=== PATIENT | female | born 1970 | race African-American/Black ===

== ENCOUNTER 2020-08-31 17:38 | Emergency (ER) | payer BC ==
--- NOTE | 2020-08-31 18:39 | EDM.PDOC ---
ED HPI GENERAL MEDICAL PROBLEM - General Chief Complaint: Upper Extremity Injury/Pain Stated Complaint: FLUID IN ELBOW Time Seen by Provider: 08/31/20 18:24 Source of Information: Reports: Patient History Limitations: Reports: No Limitations - History of Present Illness INITIAL COMMENTS - FREE TEXT/NARRATIVE: HISTORY AND PHYSICAL: History of present illness: Patient is a 50-year-old female who presents to the ED today with concern of bursitis of her right elbow. Patient states that she has had this bursitis for quite some time and has seen the orthopedic providers for it. Patient states that she had an x-ray done by the orthopedic provider as well as had a sample obtained of the fluid of the bursitis and was told that it was not infectious. Patient states she comes to the emergency room today because it still hurts and she continues to keep bumping the area of bursitis on things and feels like it is not improving. Patient denies any change in the bursitis from her evaluation from orthopedics but states that it is bothersome to her. Patient denies any new trauma or injury of the elbow. Patient denies fever, chills, chest pain, shortness of breath, or cough. Denies headache, neck stiff ness, change in vision, syncope, or near syncope. Denies nausea, vomiting, abdominal pain, diarrhea, constipation, or dysuria. Has not noted any blood in urine or stool. Patient has been eating and drinking appropriately. Review of systems: As per history of present illness and below otherwise all systems reviewed and negative. Past medical history: As per history of present illness and as reviewed below otherwise noncontributory. Surgical history: As per history of present illness and as reviewed below otherwise noncontributory. Social history: See social history for further information Family history: As per history of present illness and as reviewed below otherwise noncontributory. Physical exam: General: Patient is alert, oriented, and in no acute distress. Patient sitting comfortably on exam table. HEENT: Atraumatic, normocephalic, pupils equal and reactive bilaterally, negative for conjunctival pallor or scleral icterus, mucous membranes moist, TMs normal bilaterally, throat clear, neck supple, nontender, trachea midline. No drooling or trismus noted. No meningeal signs. No hot potato voice noted. Lungs: Clear to auscultation, breath sounds equal bilaterally, chest nontender. Heart: S1S2, regular rate and rhythm without overt murmur Abdomen: Soft, nondistended, nontender. Negative for masses or hepatosplenomegaly. Negative for costovertebral tenderness. Pelvis: Stable nontender. Genitourinary: Deferred. Rectal: Deferred. Skin: Intact, warm, dry. No lesions or rashes noted. Extremities: Patient has bursitis noted over the right olecranon without erythema, ecchymosis or increase in warmth. Patient has full range of motion of the complete right upper extremity without pain or difficulty. Radial pulses grossly intact with capillary refill less than 2 seconds. Otherwise, atraumatic, negative for cords or calf pain. Neurovascular unremarkable. Neuro: Awake, alert, oriented. Cranial nerves II through XII unremarkable. Cereb ellum unremarkable. Motor and sensory unremarkable throughout. Exam nonfocal. Notes: Signs and symptoms that were prompt return to the ED thoroughly discussed with patient. Discussed importance for follow-up with primary care provider or orthopedic provider. Voices understanding and is agreeable to plan of care. Denies any further questions or concerns at this time. Diagnostics: None Therapeutics: I did offer [place] wrap as possible padding but patient declines. Prescription: None Impression: Olecranon bursitis, right Plan: 1. Take medication as prescribed. Do not take any additional NSAIDs with diclofenac such as ibuprofen, naproxen, Aleve, and aspirin. You can take Tylenol as directed for pain and discomfort along with diclofenac as well. 2. Follow-up with the orthopedic provider and your primary care provider as discussed. Return to the ED as needed and as discussed. Definitive disposition and diagnosis as appropriate pending reevaluation and review of above. Right Elbow Pain Score (Numeric/FACES): 4 Past Medical History - Past Health History Medical/Surgical History: Denies Medical/Surgical History Social & Family History - Tobacco Use Tobacco Use Status *Q: Never Tobacco User - Caffeine Use Caffeine Use: Reports: None - Recreational Drug Use Recreational Drug Use: No Review of Systems - Review of Systems Review Of Systems: Comprehensive ROS is negative, except as noted in HPI. ED EXAM, GENERAL - Physical Exam Exam: See Below (See dictation) Course - Vital Signs Last Recorded V/S: Last Vital Signs Temp 97.7 F 08/31/20 18:20 Pulse 77 08/31/20 18:20 Resp 18 08/31/20 18:20 BP 114/76 08/31/20 18:20 Pulse Ox 98 08/31/20 18:20 Departure - Departure Time of Disposition: 18:37 Disposition: Home, Self-Care 01 Clinical Impression: Bursitis of right elbow Qualifiers: Elbow bursitis location: olecranon bursitis Qualified Code(s): M70.21 - Olecranon bursitis, right elbow - Discharge Information Instructions: Bursitis Referrals: PCP,None [Primary Care Provider] - Forms: ED Department Discharge Additional Instructions: The following information is given to patients seen in the emergency department who are being discharged to home. This information is to outline your options for follow-up care. We provide all patients seen in our emergency department with a follow-up referral. The need for follow-up, as well as the timing and circumstances, are variable depending upon the specifics of your emergency department visit. If you don't have a primary care physician on staff, we will provide you with a referral. We always advise you to contact your personal physician following an emergency department visit to inform them of the circumstance of the visit and for follow-up with them and/or the need for any referrals to a consulting specialist. The emergency department will also refer you to a specialist when appropriate. This referral assures that you have the opportunity for follow-up care with a specialist. All of these measure are taken in an effort to provide you with optimal care, which includes your follow-up. Under all circumstances we always encourage you to contact your private physician who remains a resource for coordinating your care. When calling for follow-up care, please make the office aware that this follow-up is from your recent emergency room visit. If for any reason you are refused follow-up, please contact the [facility] Emergency Department at and asked to speak to the emergency department charge nurse. [facility] [address] [place] [id number] [address] [facility] [address] [place] [address], [address] [place] [address] 1. Take medication as prescribed. Do not take any additional NSAIDs with diclofenac such as ibuprofen, naproxen, Aleve, and aspirin. You can take Tylenol as directed for pain and discomfort along with diclofenac as well. 2. Follow-up with the orthopedic provider and your primary care provider as discussed. Return to the ED as needed and as discussed. Sepsis Event Note (ED) - Evaluation Sepsis Screening Result: No Definite Risk - Focused Exam Vital Signs: Vital Signs Temp Pulse Resp BP Pulse Ox 08/31/20 18:20 97.7 F 77 18 114/76 98
== END 2020-08-31 18:49 | disposition home or self-care (01) ==
LOC: MW.ED 17:38
DX: M70.21 Olecranon bursitis, right elbow (principal)
CPT/HCPCS: 99283

== ENCOUNTER 2021-02-04 10:27 | Emergency (ER) | payer BC ==
--- NOTE | 2021-02-04 10:30 | EDM.PDOC ---
ED HPI GENERAL MEDICAL PROBLEM - General Chief Complaint: Back Pain or Injury Stated Complaint: R SIDE PAIN NEAR SYATIC NERVE Time Seen by Provider: 02/04/21 10:28 Source of Information: Reports: Patient History Limitations: Reports: No Limitations - History of Present Illness INITIAL COMMENTS - FREE TEXT/NARRATIVE: 50-year-old female presents with right-sided flank pain. Patient notes that she works at [employer] and does occasionally do lifting, but denies any heavy lifting or changes in routine. Yesterday evening began to experience a right-sided flank pain without radiation. It is a little worse with bending over palpation. This morning she also had an episode of nausea without vomiting. She denies any dysuria but notes that it is difficult to assess for hematuria as she is currently on her menstrual cycle. She does note a history of kidney stones and states that this feels similar and she is concerned she might have a kidney stone. Denies fevers, chest pain, shortness of breath. right lower back Pain Score (Numeric/FACES): 7 - Related Data Allergies Allergy/AdvReac Type Severity Reaction Status Date / Time No Known Allergies Allergy Verified 02/04/21 10:45 Home Meds: Home Meds Acetaminophen/oxyCODONE [Percocet 325-5 MG] 1 each PO Q6H PRN #12 tab 02/04/21 [Rx] Ibuprofen [Motrin] 600 mg PO Q6H PRN #20 tab 02/04/21 [Rx] Tamsulosin HCl [Flomax] 0.4 mg PO DAILY #7 capsule 02/04/21 [Rx] Past Medical History - Past Health History Medical/Surgical History: Denies Medical/Surgical History Social & Family History - Caffeine Use Caffeine Use: Reports: None ED ROS GENERAL - Review of Systems Review Of Systems: Comprehensive ROS is negative, except as noted in HPI. ED EXAM, GENERAL - Physical Exam Exam: See Below Exam Limited By: No Limitations General Appearance: Alert, WD/WN, No Apparent Distress Ears: Hearing Grossly Normal Throat/Mouth: Normal Voice, No Airway Compromise Head: Atraumatic, Normocephalic Respiratory/Chest: No Respiratory Distress, Lungs Clear, Normal Breath Sounds, No Accessory Muscle Use Cardiovascular: Normal Peripheral Pulses, Regular Rate, Rhythm Back Exam: Normal Inspection Extremities: Normal Inspection Neurological: Alert, Normal Cognition, Normal Gait Psychiatric: Normal Affect, Normal Mood Skin Exam: Warm, Dry, Intact, Normal Color Course - Vital Signs Last Recorded V/S: Last Vital Signs Temp 96.5 F L 02/04/21 10:43 Pulse 80 02/04/21 10:43 Resp 18 02/04/21 10:43 BP 115/75 02/04/21 10:43 Pulse Ox 98 02/04/21 10:43 - Orders/Labs/Meds Orders: Active Orders 24 hr Category Date Time Status UA W/MICROSCOPIC [URIN] Stat Lab 02/04/21 11:46 Results Saline Lock Insert [OM.PC] Stat Oth 02/04/21 10:52 Ordered Labs: Laboratory Tests 02/04/21 02/04/21 02/04/21 Range/Units 10:55 10:55 11:46 WBC 3.29 L (4.0-11.0) K/uL RBC 5.02 (4.30-5.90) M/uL Hgb 11.7 L (12.0-16.0) g/dL Hct 37.8 (36.0-46.0) % MCV 75.3 L (80.0-98.0) fL MCH 23.3 L (27.0-32.0) pg MCHC 31.0 (31.0-37.0) g/dL RDW Std Deviation 38.0 (28.0-62.0) fl RDW Coeff of Jean 14 (11.0-15.0) % Plt Count 308 (150-400) K/uL MPV 10.50 (7.40-12.00) fL Neut % (Auto) 61.7 (48.0-80.0) % Lymph % (Auto) 28.6 (16.0-40.0) % [place] % (Auto) 8.8 (0.0-15.0) % Eos % (Auto) 0.6 (0.0-7.0) % Baso % (Auto) 0.3 (0.0-1.5) % Neut # (Auto) 2.0 (1.4-5.7) K/uL Lymph # (Auto) 0.9 (0.6-2.4) K/uL [place] # (Auto) 0.3 (0.0-0.8) K/uL Eos # (Auto) 0.0 (0.0-0.7) K/uL Baso # (Auto) 0.0 (0.0-0.1) K/uL Nucleated RBC % 0.0 /100WBC Nucleated RBCs # 0 K/uL Sodium 140 (136-145) mmol/L Potassium 3.8 (3.5-5.1) mmol/L Chloride 104 (98-107) mmol/L Carbon Dioxide 26.0 (21.0-32.0) mmol/L BUN 17 (7.0-18.0) mg/dL Creatinine 0.6 (0.6-1.0) mg/dL Est Cr Clr Drug Dosing 95.79 mL/min Estimated GFR (MDRD) > 60.0 ml/min Glucose 103 (74-106) mg/dL Calcium 8.2 L (8.5-10.1) mg/dL Total Bilirubin 0.5 (0.2-1.0) mg/dL AST 22 (15-37) IU/L ALT 28 (14-63) IU/L Alkaline Phosphatase 38 L (46-116) U/L Total Protein 7.4 (6.4-8.2) g/dL Albumin 3.6 (3.4-5.0) g/dL Globulin 3.8 (2.6-4.0) g/dL Albumin/Globulin Ratio 0.9 (0.9-1.6) Urine Color YELLOW Urine Appearance CLEAR Urine pH 7.5 (5.0-8.0) Ur Specific [place] 1.020 (1.001-1.035) Urine Protein NEGATIVE (NEGATIVE) mg/dL Urine Glucose (UA) NEGATIVE (NEGATIVE) mg/dL Urine Ketones NEGATIVE (NEGATIVE) mg/dL Urine Occult Blood LARGE H (NEGATIVE) Urine Nitrite NEGATIVE (NEGATIVE) Urine Bilirubin NEGATIVE (NEGATIVE) Urine Urobilinogen 0.2 (<2.0) EU/dL Ur Leukocyte Esterase NEGATIVE (NEGATIVE) Urine HCG, Qual (NEGATIVE) 02/04/21 Range/Units 11:46 WBC (4.0-11.0) K/uL RBC (4.30-5.90) M/uL Hgb (12.0-16.0) g/dL Hct (36.0-46.0) % MCV (80.0-98.0) fL MCH (27.0-32.0) pg MCHC (31.0-37.0) g/dL RDW Std Deviation (28.0-62.0) fl RDW Coeff of Jean (11.0-15.0) % Plt Count (150-400) K/uL MPV (7.40-12.00) fL Neut % (Auto) (48.0-80.0) % Lymph % (Auto) (16.0-40.0) % [place] % (Auto) (0.0-15.0) % Eos % (Auto) (0.0-7.0) % Baso % (Auto) (0.0-1.5) % Neut # (Auto) (1.4-5.7) K/uL Lymph # (Auto) (0.6-2.4) K/uL [place] # (Auto) (0.0-0.8) K/uL Eos # (Auto) (0.0-0.7) K/uL Baso # (Auto) (0.0-0.1) K/uL Nucleated RBC % /100WBC Nucleated RBCs # K/uL Sodium (136-145) mmol/L Potassium (3.5-5.1) mmol/L Chloride (98-107) mmol/L Carbon Dioxide (21.0-32.0) mmol/L BUN (7.0-18.0) mg/dL Creatinine (0.6-1.0) mg/dL Est Cr Clr Drug Dosing mL/min Estimated GFR (MDRD) ml/min Glucose (74-106) mg/dL Calcium (8.5-10.1) mg/dL Total Bilirubin (0.2-1.0) mg/dL AST (15-37) IU/L ALT (14-63) IU/L Alkaline Phosphatase (46-116) U/L Total Protein (6.4-8.2) g/dL Albumin (3.4-5.0) g/dL Globulin (2.6-4.0) g/dL Albumin/Globulin Ratio (0.9-1.6) Urine Color Urine Appearance Urine pH (5.0-8.0) Ur Specific [place] (1.001-1.035) Urine Protein (NEGATIVE) mg/dL Urine Glucose (UA) (NEGATIVE) mg/dL Urine Ketones (NEGATIVE) mg/dL Urine Occult Blood (NEGATIVE) Urine Nitrite (NEGATIVE) Urine Bilirubin (NEGATIVE) Urine Urobilinogen (<2.0) EU/dL Ur Leukocyte Esterase (NEGATIVE) Urine HCG, Qual NEGATIVE (NEGATIVE) Meds: Medications Discontinued Medications Generic Name Dose Route Start Last Admin Trade Name Freq PRN Reason Stop Dose Admin Sodium Chloride 1,000 mls @ 999 mls/hr 02/04/21 10:52 02/04/21 11:04 Normal Saline IV 02/04/21 11:52 999 mls/hr .Bolus ONE Administration Ketorolac Tromethamine 15 mg 02/04/21 11:01 02/04/21 11:06 Ketorolac 30 Mg/Ml Sdv IVPUSH 02/04/21 11:02 Not Given ONETIME ONE Ondansetron HCl 4 mg 02/04/21 10:52 02/04/21 11:06 Ondansetron 4 Mg/2 Ml Sdv IVPUSH 02/04/21 10:53 4 mg ONETIME ONE Administration - Re-Assessments/Exams Free Text/Narrative Re-Assessment/Exam: 02/04/21 10:54 Patient symptoms are concerning for renal stone versus musculoskeletal back pain. Will check urinalysis for hematuria or signs of UTI. Will get basic labs. Patient notes that she is on her menstrual cycle and that she may have blood in her urine, requests going ahead with CT scan before urinalysis is resulted. I believe this is reasonable. We will treat symptomatically with Toradol and Zofran, IV fluid bolus. 02/04/21 12:27 Urinalysis does not show evidence of UTI. CT imaging shows a 2 mm renal stone without hydronephrosis. Will discharge patient with urology follow-up. Departure - Departure Time of Disposition: 12:31 Disposition: Admitted As Inpatient 65 Condition: Good Clinical Impression: Kidney stone on right side - Discharge Information Prescriptions: Tamsulosin HCl [Flomax] 0.4 mg PO DAILY #7 capsule Ibuprofen [Motrin] 600 mg PO Q6H PRN #20 tab PRN Reason: Pain Acetaminophen/oxyCODONE [Percocet 325-5 MG] 1 each PO Q6H PRN #12 tab PRN Reason: Pain Instructions: Kidney Stones Referrals: Pankaj Lopez MD [Primary Care Provider] - Forms: ED Department Discharge Additional Instructions: Your CT shows a 2 mm kidney stone. Fortunately this is very likely to pass on its own without any intervention. Occasionally the stones do get stuck and require consultation with a urologist. If you are having continued pain please make a follow-up appointment with your urologist. Your medication was sent to [facility] which is located in the [employer] store. The following information is given to patients seen in the emergency department who are being discharged to home. This information is to outline your options for follow-up care. We provide all patients seen in our emergency department with a follow-up referral. The need for follow-up, as well as the timing and circumstances, are variable depending upon the specifics of your emergency department visit. If you don't have a primary care physician on staff, we will provide you with a referral. We always advise you to contact your personal physician following an emergency department visit to inform them of the circumstance of the visit and for follow-up with them and/or the need for any referrals to a consulting specialist. The emergency department will also refer you to a specialist when appropriate. This referral assures that you have the opportunity for follow-up care with a specialist. All of these measure are taken in an effort to provide you with optimal care, which includes your follow-up. Under all circumstances we always encourage you to contact your private physician who remains a resource for coordinating your care. When calling for follow-up care, please make the office aware that this follow-up is from your recent emergency room visit. If for any reason you are refused follow-up, please contact the [facility] Emergency Department at and asked to speak to the emergency department charge nurse. Please follow up with your primary care physician. If you do not have a primary care physician, see below: [facility] [address] [place] [id number] [facility] [address] [place] [address] [facility] [address] [place] [address] Sepsis Event Note (ED) - Focused Exam Vital Signs: Vital Signs Temp Pulse Resp BP Pulse Ox 02/04/21 10:43 96.5 F L 80 18 115/75 98 - My Orders Last 24 Hours: My Active Orders 02/04/21 10:52 Saline Lock Insert [OM.PC] Stat 02/04/21 11:46 UA W/MICROSCOPIC [URIN] Stat - Assessment/Plan Last 24 Hours: My Active Orders 02/04/21 10:52 Saline Lock Insert [OM.PC] Stat 02/04/21 11:46 UA W/MICROSCOPIC [URIN] Stat
[2021-02-04] MEDS ORDERED: Ondansetron 4 MG/2 ML SDV IVPUSH ONE (10:52)
[2021-02-04] MEDS ORDERED: Ketorolac 15 MG/ML SDV IVPUSH STA (10:52)
[2021-02-04] MEDS ORDERED: Sodium Chloride 0.9% 1,000 ML IV ONE (10:52)
[2021-02-04] MEDS ORDERED: Ketorolac 30 MG/ML SDV IVPUSH ONE (11:01)
[2021-02-04 11:36] LABS: BLOOD UREA NITROGEN,BUN 17 mg/dL (7.0-18.0); CHLORIDE,CL 104 mmol/L (98-107); GLUCOSE RANDOM 103 mg/dL (74-106); POTASSIUM,K 3.8 mmol/L (3.5-5.1); SODIUM,NA 140 mmol/L (136-145)
--- NOTE | 2021-02-04 12:25 | CT ---
INDICATION: Right flank pain, history of renal stones. TECHNIQUE: CT abdomen and pelvis without contrast. COMPARISON: None available. FINDINGS: Lower chest: No focal consolidation. Evaluation of solid organs is limited secondary to lack of IV contrast administration. Liver: No suspicious focal hepatic lesion. Gallbladder and bile ducts: Gallbladder is decompressed, suboptimally evaluated. Pancreas: Unremarkable. Spleen: Unremarkable. Adrenal glands: Unremarkable. Kidneys: Nonobstructing 0.2 cm calculus in the lower pole of the right kidney. No hydronephrosis or hydroureter. No calculi identified within the left renal collecting system. Retroperitoneum: No lymphadenopathy. Bowel and mesentery: Bowel is nonobstructed. Normal appendix. No significant ascites, no pneumoperitoneum. Bladder: Unremarkable for degree of distension. Reproductive organs: Heterogeneous lobulated contour of the uterus, likely reflective of uterine fibroids. Pelvic lymph nodes: No lymphadenopathy. Vessels: Unremarkable for unenhanced study. Abdominal wall: No acute abdominal wall abnormality. Small fat filled umbilical hernia. Bones: Multilevel degenerative changes of the spine. No suspicious/aggressive focal osseous lesion. IMPRESSION: 1. Nonobstructing 0.2 cm calculus in the lower pole of the right kidney. No hydronephrosis or hydroureter. 2. Heterogeneous lobulated contour of the uterus, likely reflective of uterine fibroids. This could be further evaluated with pelvic ultrasound on a nonemergent basis. Please note that all CT scans at this facility use dose modulation, iterative reconstruction, and/or weight-based dosing when appropriate to reduce radiation dose to as low as reasonably achievable. Dictated by Allyson Murray MD @ 02/04/2021 12:23:36 PM (Electronically Signed)
== END 2021-02-04 12:39 | disposition home or self-care (01) ==
LOC: MW.ED 10:27
DX: N20.0 Calculus of kidney (principal); Z79.899 Other long term (current) drug therapy
CPT/HCPCS: 36415; 74176; 80053; 81001; 81025; 85025; 96374; 96375; 99284; J1885; J2405; J7030

== ENCOUNTER 2021-02-07 10:00 | Emergency (ER) | payer BC ==
--- NOTE | 2021-02-07 11:14 | CT ---
HISTORY: Right flank pain. Known kidney stone. Comparison: 02/04/2021. Technique: CT of the abdomen and pelvis. No intravenous contrast. Coronal/sagittal reconstruction images. Findings: Lung bases: No pleural or pericardial effusion. Heart size is normal. The lung bases demonstrate no acute airspace disease. No basilar pneumothorax. Abdomen/pelvis: No solid hepatic mass. No perihepatic ascites. No radiopaque gallstone. Spleen size is normal. No adrenal mass. No hydronephrosis. No perinephric edema. 2 millimeter stone in the right kidney, image 84, series 201. No obstructive urolith. Stable phlebolith on image 142 of series 201. Enlargement of the uterine corpus, stable. This could represent fibroid disease. Pelvic ultrasound is suggested when clinically appropriate. No mural edema. No evidence for a bowel obstruction. No evidence for appendicitis. Nonenlarged inguinal lymph nodes. No inguinal, pelvic sidewall, retroperitoneal, or gastrohepatic ligament adenopathy. Bone windows demonstrate sclerosis at the iliac sides of both SI joints without fusion. No suspicious bone lesions. On sagittal reconstruction images, vertebral body heights are maintained. Impression: 1. There is a right renal nephrolith, which is stable when compared with 02/04/2021. 2. There is no hydronephrosis, hydroureter, or perinephric inflammatory changes. 3. No abdominal or pelvic lymphadenopathy. Please note that all CT scans at this facility use dose modulation, iterative reconstruction, and/or weight-based dosing when appropriate to reduce radiation dose to as low as reasonably achievable. Dictated by Tod Pichardo MD @ 02/07/2021 11:12:54 AM (Electronically Signed)
[2021-02-07 11:28] LABS: BLOOD UREA NITROGEN,BUN 9 mg/dL (7.0-18.0); CARBON DIOXIDE,CO2 29.5 mmol/L (21.0-32.0); CHLORIDE,CL 102 mmol/L (98-107); GLUCOSE RANDOM 114 mg/dL (74-106); LIPASE 81 U/L (73-393); SODIUM,NA 139 mmol/L (136-145)
--- NOTE | 2021-02-07 11:35 | EDM.PDOC ---
ED HPI GENERAL MEDICAL PROBLEM - General Chief Complaint: Genitourinary Problem Stated Complaint: KIDNEY PAIN Time Seen by Provider: 02/07/21 10:15 Source of Information: Reports: Patient History Limitations: Reports: No Limitations - History of Present Illness INITIAL COMMENTS - FREE TEXT/NARRATIVE: HISTORY AND PHYSICAL: History of present illness: Patient is a 50-year-old female who presents emergency room today with concern of worsening right flank pain with known kidney stone. Patient states that she was seen in the emergency room a few days ago and at that time was told she had a kidney stone. Patient states despite doing what she was instructed to do at home, she has had worsening right flank pain so came back here to the emergency room. Patient states she also feels like the right side of her abdomen is more swollen and tender to the touch than it was when she was seen in the emergency room a few days ago. Patient states that she took all of her medications as prescribed to her but states that she was not sent home with a strainer so is unsure if she passed the stone. Patient denies any trauma or injury or any new associated symptoms. Patient denies fever, chills, chest pain, shortness of breath, or cough. Denies headache, neck stiff ness, change in vision, syncope, or near syncope. Denies nausea, vomiting, diarrhea, constipation, or dysuria. Has not noted any blood in urine or stool. Patient has been eating and drinking appropriately. Review of systems: As per history of present illness and below otherwise all systems reviewed and negative. Past medical history: As per history of present illness and as reviewed below otherwise noncontributory. Surgical history: As per history of present illness and as reviewed below otherwise nonc ontributory. Social history: See social history for further information Family history: As per history of present illness and as reviewed below otherwise noncontributory. Physical exam: General: Patient is alert, oriented, and in no acute distress. Patient sitting comfortably on exam table. Vitals stable and reviewed by me. HEENT: Atraumatic, normocephalic, pupils equal and reactive bilaterally, negative for conjunctival pallor or scleral icterus, mucous membranes moist, throat clear, neck supple, nontender, trachea midline. No drooling or trismus noted. No meningeal signs. No hot potato voice noted. Lungs: Clear to auscultation, breath sounds equal bilaterally, chest nontender. Heart: S1S2, regular rate and rhythm without overt murmur Abdomen: Soft, nondistended, mild right sided flank tenderness without guarding. Negative for masses or hepatosplenomegaly. Negative for costovertebral tenderness. Pelvis: Stable nontender. Genitourinary: Deferred. Rectal: Deferred. Skin: Intact, warm, dry. No lesions or rashes noted. Extremities: Atraumatic, negative for cords or calf pain. Neurovascular unremarkable. Neuro: Awake, alert, oriented. Cranial nerves II through XII unremarkable. C erebellum unremarkable. Motor and sensory unremarkable throughout. Exam nonfocal. Medical Decision Making: Patient is a 50-year-old female presents emergency room today with concern of worsening right flank pain with known ureterolithiasis. Patient was seen and evaluated on 02/04/2021 and on chart review it does appear that she had a small 2 mm ureterolithiasis at that time without hydronephrosis. Upon arrival to the ED, patient is vitally stable and well-appearing on exam. She does have some mild right flank tenderness to palpation, exam is otherwise unremarkable. Will repeat lab work, repeat urinalysis assessing for possible infection, and repeat imaging to assess possible complication of known stone. CBC mild derangements are unremarkable. CMP mild derangements are unremarkable specifically, BUN and creatinine are within normal limits. Urinalysis is completely clear with no blood or signs of infection. hCG is negative. Abdominal pelvic CT scan today shows that there is a right renal nephrolith which is stable when compared to 02/04/2021. There is no hydronephrosis, hydroureter, or perinephritic inflammatory changes. No abdominal or pelvic lymphadenopathy. Does appear that the stone that patient did have on 02/04/2021 has passed with no residual complications. Lab work and urinalysis today are unremarkable with no evidence of why patient continues to have right flank pain. On reevaluation of patient, she remains vitally stable and comfortable throughout stay in ED. All signs and symptoms that would prompt return to the ED thoroughly discussed with patient. Discussed importance for follow-up with a primary care provider. Voices understanding and is agreeable to plan of care. Denies any further questions or concerns at this time. Diagnostics: CBC, CMP, urinalysis, lipase, urine hCG, abdominal pelvic CT scan without contrast Therapeutics: None Prescription: None Impression: Right flank pain S/P recent ureterolithiasis Plan: 1. You can alternate ibuprofen and Tylenol as directed for pain and discomfort. 2. Follow-up with primary care provider as discussed. Return to the ED as needed and as discussed. Definitive disposition and diagnosis as appropriate pending reevaluation and review of above. Right Back Pain Score (Numeric/FACES): 7 - Related Data Allergies Allergy/AdvReac Type Severity Reaction Status Date / Time No Known Allergies Allergy Verified 02/07/21 10:11 Home Meds: Home Meds Acetaminophen/oxyCODONE [Percocet 325-5 MG] 1 each PO Q6H PRN #12 tab 02/04/21 [Rx] Ibuprofen [Motrin] 600 mg PO Q6H PRN #20 tab 02/04/21 [Rx] Tamsulosin HCl [Flomax] 0.4 mg PO DAILY #7 capsule 02/04/21 [Rx] Past Medical History - Past Health History Medical/Surgical History: Denies Medical/Surgical History HEENT History: Reports: None Cardiovascular History: Reports: None Respiratory History: Reports: None Gastrointestinal History: Reports: None Genitourinary History: Reports: None, 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: Musculoskeletal History: Reports: None Neurological History: Reports: None Psychiatric History: Reports: None Endocrine/Metabolic History: Reports: None Hematologic History: Reports: None Immunologic History: Reports: None Oncologic (Cancer) History: Reports: None Dermatologic History: Reports: None - Infectious Disease History Infectious Disease History: Reports: None - Past Surgical History Head Surgeries/Procedures: Reports: None HEENT Surgical History: Reports: None Cardiovascular Surgical History: Reports: None Respiratory Surgical History: Reports: None GI Surgical History: Reports: None Female Surgical History: Reports: Section Endocrine Surgical History: Reports: None Neurological Surgical History: Reports: None Musculoskeletal Surgical History: Reports: None Oncologic Surgical History: Reports: None Dermatological Surgical History: Reports: None Social & Family History - Family History Family Medical History: No Pertinent Family History - Tobacco Use Tobacco Use Status *Q: Never Tobacco User - Caffeine Use Caffeine Use: Reports: None - Recreational Drug Use Recreational Drug Use: No ED ROS GENERAL - Review of Systems Review Of Systems: Comprehensive ROS is negative, except as noted in HPI. ED EXAM, GENERAL - Physical Exam Exam: See Below (see dictation) Course - Vital Signs Last Recorded V/S: Last Vital Signs Temp 98.3 F 02/07/21 10:11 Pulse 82 02/07/21 10:11 Resp 18 02/07/21 10:11 BP 122/82 02/07/21 10:11 Pulse Ox 98 02/07/21 10:11 - Orders/Labs/Meds Labs: Laboratory Tests 02/07/21 02/07/21 02/07/21 Range/Units 10:23 10:23 10:59 WBC 3.39 L (4.0-11.0) K/uL RBC 5.23 (4.30-5.90) M/uL Hgb 12.2 (12.0-16.0) g/dL Hct 39.4 (36.0-46.0) % MCV 75.3 L (80.0-98.0) fL MCH 23.3 L (27.0-32.0) pg MCHC 31.0 (31.0-37.0) g/dL RDW Std Deviation 37.8 (28.0-62.0) fl RDW Coeff of Jean 14 (11.0-15.0) % Plt Count 306 (150-400) K/uL MPV 10.50 (7.40-12.00) fL Neut % (Auto) 47.2 L (48.0-80.0) % Lymph % (Auto) 38.9 (16.0-40.0) % [place] % (Auto) 12.7 (0.0-15.0) % Eos % (Auto) 0.9 (0.0-7.0) % Baso % (Auto) 0.3 (0.0-1.5) % Neut # (Auto) 1.6 (1.4-5.7) K/uL Lymph # (Auto) 1.3 (0.6-2.4) K/uL Loving # (Auto) 0.4 (0.0-0.8) K/uL Eos # (Auto) 0.0 (0.0-0.7) K/uL Baso # (Auto) 0.0 (0.0-0.1) K/uL Nucleated RBC % 0.0 /100WBC Nucleated RBCs # 0 K/uL Sodium (136-145) mmol/L Potassium (3.5-5.1) mmol/L Chloride (98-107) mmol/L Carbon Dioxide (21.0-32.0) mmol/L BUN (7.0-18.0) mg/dL Creatinine (0.6-1.0) mg/dL Est Cr Clr Drug Dosing mL/min Estimated GFR (MDRD) ml/min Glucose (74-106) mg/dL Calcium (8.5-10.1) mg/dL Total Bilirubin (0.2-1.0) mg/dL AST (15-37) IU/L ALT (14-63) IU/L Alkaline Phosphatase (46-116) U/L Total Protein (6.4-8.2) g/dL Albumin (3.4-5.0) g/dL Globulin (2.6-4.0) g/dL Albumin/Globulin Ratio (0.9-1.6) Lipase (73-393) U/L Urine Color YELLOW Urine Appearance CLEAR Urine pH 6.0 (5.0-8.0) Ur Specific [place] 1.020 (1.001-1.035) Urine Protein NEGATIVE (NEGATIVE) mg/dL Urine Glucose (UA) NEGATIVE (NEGATIVE) mg/dL Urine Ketones NEGATIVE (NEGATIVE) mg/dL Urine Occult Blood NEGATIVE (NEGATIVE) Urine Nitrite NEGATIVE (NEGATIVE) Urine Bilirubin NEGATIVE (NEGATIVE) Urine Urobilinogen 0.2 (<2.0) EU/dL Ur Leukocyte Esterase NEGATIVE (NEGATIVE) Urine HCG, Qual NEGATIVE (NEGATIVE) 02/07/21 Range/Units 10:59 WBC (4.0-11.0) K/uL RBC (4.30-5.90) M/uL Hgb (12.0-16.0) g/dL Hct (36.0-46.0) % MCV (80.0-98.0) fL MCH (27.0-32.0) pg MCHC (31.0-37.0) g/dL RDW Std Deviation (28.0-62.0) fl RDW Coeff of Jean (11.0-15.0) % Plt Count (150-400) K/uL MPV (7.40-12.00) fL Neut % (Auto) (48.0-80.0) % Lymph % (Auto) (16.0-40.0) % [place] % (Auto) (0.0-15.0) % Eos % (Auto) (0.0-7.0) % Baso % (Auto) (0.0-1.5) % Neut # (Auto) (1.4-5.7) K/uL Lymph # (Auto) (0.6-2.4) K/uL [place] # (Auto) (0.0-0.8) K/uL Eos # (Auto) (0.0-0.7) K/uL Baso # (Auto) (0.0-0.1) K/uL Nucleated RBC % /100WBC Nucleated RBCs # K/uL Sodium 139 (136-145) mmol/L Potassium 4.0 (3.5-5.1) mmol/L Chloride 102 (98-107) mmol/L Carbon Dioxide 29.5 (21.0-32.0) mmol/L BUN 9 (7.0-18.0) mg/dL Creatinine 0.6 (0.6-1.0) mg/dL Est Cr Clr Drug Dosing 95.79 mL/min Estimated GFR (MDRD) > 60.0 ml/min Glucose 114 H (74-106) mg/dL Calcium 8.4 L (8.5-10.1) mg/dL Total Bilirubin 0.4 (0.2-1.0) mg/dL AST 19 (15-37) IU/L ALT 26 (14-63) IU/L Alkaline Phosphatase 39 L (46-116) U/L Total Protein 7.4 (6.4-8.2) g/dL Albumin 3.7 (3.4-5.0) g/dL Globulin 3.7 (2.6-4.0) g/dL Albumin/Globulin Ratio 1.0 (0.9-1.6) Lipase 81 (73-393) U/L Urine Color Urine Appearance Urine pH (5.0-8.0) Ur Specific [place] (1.001-1.035) Urine Protein (NEGATIVE) mg/dL Urine Glucose (UA) (NEGATIVE) mg/dL Urine Ketones (NEGATIVE) mg/dL Urine Occult Blood (NEGATIVE) Urine Nitrite (NEGATIVE) Urine Bilirubin (NEGATIVE) Urine Urobilinogen (<2.0) EU/dL Ur Leukocyte Esterase (NEGATIVE) Urine HCG, Qual (NEGATIVE) Departure - Departure Time of Disposition: 11:35 Disposition: Home, Self-Care 01 Clinical Impression: Flank pain - Discharge Information Instructions: Abdominal Pain, Adult, [id number] Referrals: Pankaj Lopez MD [Primary Care Provider] - Forms: ED Department Discharge Additional Instructions: The following information is given to patients seen in the emergency department who are being discharged to home. This information is to outline your options for follow-up care. We provide all patients seen in our emergency department with a follow-up referral. The need for follow-up, as well as the timing and circumstances, are variable depending upon the specifics of your emergency department visit. If you don't have a primary care physician on staff, we will provide you with a referral. We always advise you to contact your personal physician following an emergency department visit to inform them of the circumstance of the visit and for follow-up with them and/or the need for any referrals to a consulting specialist. The emergency department will also refer you to a specialist when appropriate. This referral assures that you have the opportunity for follow-up care with a specialist. All of these measure are taken in an effort to provide you with optimal care, which includes your follow-up. Under all circumstances we always encourage you to contact your private physician who remains a resource for coordinating your care. When calling for follow-up care, please make the office aware that this follow-up is from your recent emergency room visit. If for any reason you are refused follow-up, please contact the [facility] Emergency Department at and asked to speak to the emergency department charge nurse. [facility] [address] [place] [id number] [id number] 1. You can alternate ibuprofen and Tylenol as directed for pain and discomfort. 2. Follow-up with primary care provider as discussed. Return to the ED as needed and as discussed. Sepsis Event Note (ED) - Evaluation Sepsis Screening Result: No Definite Risk - Focused Exam Vital Signs: Vital Signs Temp Pulse Resp BP Pulse Ox 02/07/21 10:11 98.3 F 82 18 122/82 98
== END 2021-02-07 11:48 | disposition home or self-care (01) ==
LOC: MW.ED 10:00
DX: R10.9 Unspecified abdominal pain (principal); Z79.899 Other long term (current) drug therapy; Z87.442 Personal history of urinary calculi
CPT/HCPCS: 36415; 74176; 74176-26; 80053; 81003; 81025; 83690; 85025; 99284-25

== ENCOUNTER 2022-10-09 05:00 | Emergency (ER) | payer BC ==
[2022-10-09] MEDS ORDERED: Lidocaine 4% 1 each Patch TOP STA (05:11)
[2022-10-09] MEDS ORDERED: Cyclobenzaprine 10 MG Tab PO ONE (05:11)
== END 2022-10-09 06:55 | disposition home or self-care (01) ==
LOC: MW.ED 05:00
DX: M53.3 Sacrococcygeal disorders, not elsewhere classified (principal)
CPT/HCPCS: 73502; 99283; A9270

== ENCOUNTER 2024-07-18 07:06 | Day surgery (SDC) | payer BC ==
[~2024-07-18 07:06] MED LIST: Scopalamine 1mg/3day Transdermal Patch TOP ONE
[2024-07-18] MEDS: Lactated Ringers 1,000 ML IV SCH (07:11)
[2024-07-18] MEDS ORDERED: HYDROmorphone 1 MG/ML Syringe IVPUSH PRN (07:29)
[2024-07-18] MEDS ORDERED: Albuterol 0.083% 2.5 MG/3 ML Neb Soln NEB PRN (07:29)
[2024-07-18] MEDS ORDERED: Metoclopramide 10 MG/2 ML SDV IVPUSH PRN (07:29)
[2024-07-18] MEDS ORDERED: Morphine 2 MG/ML SYRINGE IVPUSH PRN (07:29)
[2024-07-18] MEDS ORDERED: Naloxone 0.4 MG/ML SDV IVPUSH PRN (07:29)
[2024-07-18] MEDS ORDERED: fentaNYL 50 MCG/ML SDV IVPUSH PRN (07:29)
[2024-07-18] MEDS ORDERED: Ondansetron 4 MG/2 ML SDV IVPUSH PRN (07:29)
[2024-07-18] MEDS ORDERED: Phenylephrine HCl In 0.9% NaCl 1 MG/10 ML Syringe IVPUSH PRN (07:29)
[2024-07-18] MEDS ORDERED: Midazolam 1 MG/ML 2 ML SDV ONE (07:35)
[2024-07-18] MEDS ORDERED: fentaNYL 100 MCG/2 ML SDV ONE (07:35)
[2024-07-18] MEDS ORDERED: Propofol 200 MG/20 ML SDV ONE (07:35)
[2024-07-18] MEDS ORDERED: Bupivacaine 0.5%/EPINEPHrine 1:200,000 30 ML SDV ONE (07:36)
[2024-07-18] MEDS ORDERED: Lidocaine 2% 5 ML SDV ONE (07:37)
[2024-07-18] MEDS ORDERED: ceFAZolin 1 GM Vial ONE (08:34)
[2024-07-18] MEDS ORDERED: Ketorolac 30 MG/ML SDV ONE (08:56)
[2024-07-18] MEDS ORDERED: Ondansetron 4 MG/2 ML SDV ONE (08:56)
== END 2024-07-18 10:25 | disposition home or self-care (01) ==
LOC: MW.SDS 07:06
PROVIDERS: ATTEND Orthopaedic Surgery
DX: S83.242A Other tear of medial meniscus, current injury, left knee, initial encounter (principal); M94.262 Chondromalacia, left knee; X58.XXXA Exposure to other specified factors, initial encounter
CPT/HCPCS: 29881; J0690; J1885; J2003; J2250; J2405; J2704; J3010; J7120; J3490